=== PATIENT | male | born 1950 | race Caucasian/White ===

== ENCOUNTER 2024-12-26 02:08 | Emergency (ER) | payer MEDICARE ==
[~2024-12-26] VITALS: Ht 167.6 cm; Wt 80.6 kg
[2024-12-26 02:19] VITALS: O2SAT 97
[2024-12-26] MEDS: ACETAMINOPHEN 500MG TABLET PO ONE (03:21)
[2024-12-26] MEDS ORDERED: LIDO700A15 TP (03:28)
[2024-12-26] MEDS ORDERED: NAPR-1176 MT (03:28)
[2024-12-26 03:39] VITALS: BP 143/73; PULSE 73; RESP 16; TEMP 36.6; O2SAT 95
== END 2024-12-26 03:45 | disposition home or self-care (01) ==
LOC: ER 02:37
DX: G62.9 Polyneuropathy, unspecified (principal); M25.572 Pain in left ankle and joints of left foot; Z79.1 Long term (current) use of non-steroidal anti-inflammatories (NSAID); Z79.899 Other long term (current) drug therapy; Z98.890 Other specified postprocedural states
CPT/HCPCS: 73610; 99283